=== PATIENT | male | born 1950 | race Caucasian/White ===

== ENCOUNTER 2017-03-24 11:33 | Emergency (ER) | payer MEDICARE ==
[~2017-03-24] VITALS: Ht 170.2 cm; Wt 63.5 kg
[2017-03-24] MEDS ORDERED: LISI10TA5 PO (11:44)
[2017-03-24] MEDS ORDERED: ACETAMINOPHEN ES 500 MG TABLET PO ONE (12:00)
[2017-03-24] MEDS ORDERED: TDAP DIPH,PERTUSS,TET VAC/PF 0.5 ML DISP.SYRIN IM ONE ×2 (12:00→12:12)
--- NOTE | 2017-03-24 12:00 | NUR ---
Pt evaluated by MD for nasal laceration. Pt reported a heavy object has been pushed accidentally on him during the moving. A/O x 4, nad noted, vss, awaiting x-ray results.
[2017-03-24] MEDS ORDERED: ACETAMINOPHEN ES 500 MG TABLET ONE (12:11)
--- NOTE | 2017-03-24 12:38 | NUR ---
Patient discharged home in stable conditon. Written and verbal after care instructions given. Patient verbalizes understanding of instructions.
[2017-03-24 12:39] VITALS: BP 148/98
== END 2017-03-24 12:40 | disposition home or self-care (01) ==
LOC: ER 11:33
DX: S02.2XXA Fracture of nasal bones, initial encounter for closed fracture (principal); I10 Essential (primary) hypertension; W20.8XXA Other cause of strike by thrown, projected or falling object, initial encounter; Y93.89 Activity, other specified; Y92.9 Unspecified place or not applicable; Y99.9 Unspecified external cause status
CPT/HCPCS: 70160; 90715; A4663